=== PATIENT | female | born 1950 | race Caucasian/White ===

== ENCOUNTER → 2016-08-17 | Outpatient (CLI) | payer OTHER ==
[~2016-08-17] MED LIST: GADOBUTROL 10 ML VIAL IVP ONE
== END ==
LOC: FIMAGING 08:03
PROVIDERS: ATTEND Psychiatry & Neurology Neurology
DX: R41.3 Other amnesia (principal)
CPT/HCPCS: 70553; A9585

== ENCOUNTER → 2018-03-04 | Outpatient (CLI) | payer OTHER, MEDICARE ==
[2018-03-04 12:09] LABS: PLATELET COUNT 265 10^3/uL (150-400)
--- NOTE | 2018-03-05 12:01 | CPEKG ---
Test Reason : PREOP Blood Pressure : / mmHG Vent. Rate : 063 BPM Atrial Rate : 063 BPM P-R Int : 148 ms QRS Dur : 090 ms QT Int : 452 ms P-R-T Axes : 050 014 031 degrees QTc Int : 463 ms SINUS RHYTHM Heart rate has increased in comparison to prior Confirmed by Domingo Wilson ([id number]) on 03/05/2018 12:00:53 PM Referred By: Confirmed By:Domingo Wilson
== END ==
LOC: FPAT 11:10
PROVIDERS: ATTEND Orthopaedic Surgery
DX: Z01.810 Encounter for preprocedural cardiovascular examination (principal); Z01.818 Encounter for other preprocedural examination

== ENCOUNTER 2018-04-28 09:30 | Observation (INO) | payer OTHER, MEDICARE ==
--- NOTE | 2018-04-27 14:54 | GHP ---
DATE OF ADMISSION: 04/28/2018 ADMISSION DIAGNOSIS: Severe left knee osteoarthritis. HISTORY OF PRESENT ILLNESS: The patient is a 67-year-old female who will be admitted for a left tota l knee arthroplasty with Dr. Jolley on April 28, 2018, at [facility]. Because of her progressive pain, advanced arthritis, and recalcitrant response to conservative therapies, she kebede s elected to proceed with a left total knee arthroplasty. The patient has tried and failed pharmacol ogical management, injection therapies, and physical therapies. The patient has had progressive pain in the left knee for several years. Her activities of daily living have become progressively more a nd more difficult. She uses a cane for ambulation. She has difficulties going up and down stairs be cause of instability. 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 She also has a history of a right total hip arthroplasty and a fusion of her right ankle. She also has RSD in the right leg and ankle. REVIEW OF SYSTEMS: Please see HPI. PAST MEDICAL HISTORY: Pertinent for right total hip arthroplasty, right ankle arthrodesis, RSD in th e right lower extremity, and chronic pain. Also post-polio syndrome. No history of DVT, hepatitis, or metal allergies. CURRENT MEDICATIONS: This is a long list: Armodafinil 250 mg 1-1/2 tablets daily, bupropion HCL SR 100 mg 1 tablet daily, clonidine 0.1 mg daily, diazepam 5 mg 1 tablet q.6 hours, duloxetine 60 mg 1 b .i.d., Forteo 20 mcg per dose, hydromorphone extended release 16 mg q.24 hours., hydromorphone extend ed release 32 mg extended release 1 tablet daily, oxycodone 15 to 30 mg q.4 to 6 hours, OxyContin 20 to 80 mg b.i.d., trazodone 150 mg tablets 1-1/2 tablets by mouth daily as needed, and VESIcare 10 mg 1 tablet daily. ALLERGIES: Codeine and Keflex. Keflex causes a rash. FAMILY HISTORY: Pertinent for hypertension. SOCIAL HISTORY: The patient lives with a significant other. She is a nonsmoker. She uses medical m arijuana. Moderate alcohol intake. Her activities, include walking and swimming. PHYSICAL EXAMINATION: VITAL SIGNS: Height 5 feet 6 inches. Weight 130 pounds. BMI 20.7, blood pre ssure 70/50. HEENT: Head: Normocephalic, atraumatic. Eyes: PERRLA. Conjunctivae and sclerae are clear. Mouth : She has good oral hygiene without any loose teeth. LUNGS: Clear. HEART: Regular rate and rhythm without murmurs, gallops, or rubs. EXTREMITIES: Pertinent findings are limited to the patient's left knee. On exam, she has a slight f lexion contracture of the left knee. She has 110 degrees of flexion. There is mild varus deformity. Mild effusion. The knee is stable to exam. No varicosities. IMAGING: Recent x-rays of the patient's left knee shows end-stage epfp-hv-kgut arthritis, primarily of the medial tibial-femoral compartment with peripheral osteophyte formation and increased subchondr al sclerosis, primarily of the medial and lateral compartments. ASSESSMENT: 1. Severe left knee osteoarthritis. 2. Status post right total hip arthroplasty. 3. Status post right ankle arthrodesis. 4. Reflex sympathetic dystrophy of the right lower extremity. 5. Chronic pain. 6. Post-polio syndrome. PLAN: The plan will be for the patient to undergo a left total knee arthroplasty with Dr. Jolley at the [facility] on April 28, 2018. The surgery has been described to the patient, including the risks, benefits, and expectations. She understands the importance of postoperative phy sical therapy. All her questions have been answered and she consents to surgery here in the office t nae. Copy requested to: Valentin Liriano Dr. /[id number]/MODL
[2018-04-28] MEDS ORDERED: GABAPENTIN 300 MG CAP PO ONE (10:03)
[2018-04-28] MEDS ORDERED: FAMOTIDINE 20 MG TAB PO ONE (10:03)
[2018-04-28] MEDS ORDERED: ACETAMINOPHEN 325 MG TAB PO ONE (10:03)
[2018-04-28] MEDS ORDERED: ONDANSETRON 4 MG/2 ML VIAL IVP ONE (10:03)
[2018-04-28] MEDS ORDERED: DEXAMETHASONE 4 MG/ML VIAL IVP ONE (10:03)
[2018-04-28] MEDS ORDERED: LR 1,000 ML IV ONE (10:06)
[2018-04-28] MEDS: TRANEXAMIC ACID 1,000 MG in NS 100 ML IV ONE ×2 (10:17→12:56)
[2018-04-28] MEDS ORDERED: TRANEXAMIC ACID 3,000 MG/50 ML BAG IRR ONE (10:22)
[2018-04-28] MEDS: ceFAZolin 2 GM/DEXTROSE 100 ML IV ONE ×2 (10:32→13:06)
[2018-04-28] MEDS: ceFAZolin 1 GM/5 ML SYR ONE ×2 (11:02→13:38)
[2018-04-28] MEDS: VANCOMYCIN 1 GM VIAL ONE ×2 (11:03→12:53)
[2018-04-28] MEDS: POVIDONE-IODINE 20 ML in SODIUM CL IRRIG SOLUTION 500 ML IRR ONE ×2 (11:03→13:39)
[2018-04-28] MEDS: TRANEXAMIC ACID 3,000 MG in NS (SYRINGE) 50 ML IRR ONE ×2 (11:03→13:40)
[2018-04-28] MEDS: ROPIVACAINE 0.2% 80 MG, EPINEPHrine 0.2 MG, KETOROLAC TROMETHAMINE 30 MG in SYRINGE 0 ML IU ONE ×2 (11:03→13:39)
--- NOTE | 2018-04-28 11:13 | PDANEPAE ---
ANE Past Medical History - Cardiovascular History Hx Hypertension: No Hx Arrhythmias: No Hx Chest Pain: No Hx Coronary Artery / Peripheral Vascular Disease: No Hx CHF / Valvular Disease: No Hx Palpitations: No Cardiovascular History Comment: CHRONIC POOR CIRCULATION - Pulmonary History Hx COPD: No Hx Asthma/Reactive Airway Disease: No Hx Recent Upper Respiratory Infection: No Hx Oxygen in Use at Home: Yes O2 in Use at Home (L/minute): 4l at noc Hx Sleep Apnea: No Sleep Apnea Screening Result - Last Documented: Negative Pulmonary History Comment: decreased sats when sleeping d/t narcotics - Neurologic History Hx Cerebrovascular Accident: No Hx Seizures: No Hx Dementia: No Neurologic History Comment: TAKES NIVIGIL FOR DAYTIME SLEEPINESS AND FOCUS - Endocrine History Hx Diabetes: No Hypothyroid: No Hyperthyroid: No Obesity: no - Renal History Hx Renal Disorders: Yes Renal History Comment: KIDNEY STONES PASSED ON OWN IN JANUARY 2013 - Liver History Hx Hepatic Disorders: No - Neurological & Psychiatric Hx Hx Neurological and Psychiatric Disorders: Yes Neurological / Psychiatric History Comment: RSDS-'REGIONAL SYMPATHETIC DYSTOPHY SYNDROME'- CHRONIC PAIN. DEPRESSION - Cancer History Hx Cancer: Yes Cancer History Comment: ATYPICAL CELLS L BREAST- lumpectomy with chemo - Congenital Disorder History Hx Congenital Disorders: No - GI History GERD: no Hx Gastrointestinal Disorders: Yes Gastrointestinal History Comment: ESOPHAGUS LESION 15 Y AGO-ULCER DX - Other Health History Other Health History: chronic pain. POLIO AGE 19 MO- NUMERUS SURG R LEG, ANKLE AND FOOT. PRESENTLY R LEG IS 5/8 INCH SHORTER THAN L. MISSING TEETH X 4-5. LOOSE TOOTH BOTTOM L. bilateral hearing aides- doesn't wear. wears glasses - Chronic Pain History Chronic Pain: Yes (RT LEG) - Surgical History Prior Surgeries: 02/06/16 right hip reduction with dolbeare for dislocation. right hip closed reduction with melinda for dislocation. RIGHT FEMUR HARDWARE REMOVAL 12/23/12. RIGHT ABDIRAHMAN 06/25/13. NUMEROUS SURG R FOOT, LEG- HX POLIO AGE 19 MO. 12/26 HARDWARE REM R FEMUR,'08 R ARM FX REP X2, '08 HARDWARE PLACED FX HIP, '05 L BREAST. LUMPECTOMY- ATYPICAL. CELLS-TX TOMOXIFEN, EVISTA. '05-'10. '95 R BREAST BX-. BENIGN. '99 R LEG FX REP,'82. EPIPHYSIODESIS L FEMUR TO. CORRECT LEG LENGTH. INEQUALITY, R ANKLE. ARTHRODESIS '82. REMVL HARDWARE RT FEMUR 12/23/12 ANE Review of Systems Review of Systems: - Exercise capacity Exercise capacity: >=4 METS, limited by disability METS (RN): 3 METS ANE Patient History - Allergies Allergies/Adverse Reactions: adhesive tape Allergy (Uncoded 02/13/16 17:17) Itching bandaids Allergy (Uncoded 02/13/16 17:17) Itching - Home Medications Home Medications: DULoxetine [Cymbalta 60 MG (*)] 60 mg PO BID 02/09/14 [Last Taken 04/28/18] traZODone [traZODone 150MG (*)] 225 mg PO HS 02/07/16 [Last Taken 04/27/18] clonIDINE [Catapres (*)] 0.1 mg PO DAILY PRN 02/18/18 [Last Taken 04/14/18] Denosumab [Prolia] 60 mg SQ Q180D 04/09/18 [Last Taken 11/19/17] buPROPion SR [Wellbutrin 150mg SR (*)] 150 mg PO BID 04/09/18 [Last Taken ] celeCOXIB [Celebrex (*)] 200 mg PO DAILY 04/09/18 [Last Taken 04/27/18] oxyCODONE IR [Oxycodone Ir (*)] 15 mg PO QID 04/09/18 [Last Taken 04/28/18] - NPO status NPO Since - Liquids (Date): 04/28/18 NPO Since - Liquids (Time): 05:30 NPO Since - Solids (Date): 04/27/18 NPO Since - Solids (Time): 06:00 - Anes Hx Anes Hx: no prior problems - Smoking Hx Smoking Status: Never smoked Marijuana use: Yes - Alcohol Use Alcohol Use: Occasionally - Family Anes Hx Family Anes Hx: neg - N/A Family Hx Anesthesia Complications: none ANE Labs/Vital Signs - Vital Signs Blood Pressure: 108/50 Heart Rate: 71 Respiratory Rate: 16 O2 Sat (%): 93 Height: 167.64 cm Weight: 61.235 kg ANE Physical Exam - Airway Neck exam: decreased ROM Mallampati Score: Class 2 Mouth exam: dentures - Pulmonary Pulmonary: no respiratory distress, no rales or rhonchi, clear to auscultation, reduced air movement - Cardiovascular Cardiovascular: regular rate and rhythym, no murmur, rub, or gallop - ASA Status ASA Status: III ANE Anesthesia Plan Anesthesia Plan: MAC, spinal Regional Anesthesia: continuous NB, adductor canal FNB Total IV Anesthesia: No
[2018-04-28] MEDS ORDERED: PROPOFOL/EMULSION 500 MG/50 ML BOTTLE IV ONE (11:52)
[2018-04-28] MEDS ORDERED: fentaNYL 100 MCG/2 ML INJ ONE (11:52)
--- NOTE | 2018-04-28 12:05 | PDHPUP ---
History & Physical Update H&P update statement: This history and physical update is based on an assessment of the patient which was completed after admission or registration (within 24 hours), but prior to the surgery/procedure. H&P update: H&P reviewed & patient examined
[2018-04-28] MEDS ORDERED: MIDAZOLAM 2 MG/2 ML VIAL ONE (12:48)
[2018-04-28] MEDS ORDERED: BUPIVACAINE/DEXTROSE 7.5MG/ML 2 ML SPINAL AMP SP ONE (13:13)
[2018-04-28] MEDS ORDERED: NALOXONE HCL 0.4 MG/ML INJ IVP PRN (13:50)
[2018-04-28] MEDS ORDERED: ONDANSETRON 4 MG/2 ML VIAL IVP PRN ×2 (13:50→15:09)
[2018-04-28] MEDS ORDERED: LR 500 ML IV PRN (13:50)
[2018-04-28] MEDS ORDERED: MIDAZOLAM 2 MG/2 ML VIAL IVP ONE (13:50)
[2018-04-28] MEDS ORDERED: PROMETHAZINE HCL 25 MG/ML INJ IVP PRN ×2 (13:50→15:09)
[2018-04-28] MEDS ORDERED: PHENYLEPHRINE HCL 100 MCG/ML SYR IVP PRN (13:50)
[2018-04-28] MEDS ORDERED: ROPIVACAINE HCL 150 MG/30 ML INJ ONE (14:34)
[2018-04-28] MEDS ORDERED: PHENYLEPHRINE HCL 100 MCG/ML SYR ONE (14:42)
--- NOTE | 2018-04-28 14:47 | POSTOPPROG ---
Post Op Note Date of Operation: 04/28/18 Surgeon: Chet Jolley Knife Setter Grinder Machine: Lizbet Anesthesiologist: Agapito Anesthesia: IV Sedation, Spinal Post-op Diagnosis: Left knee severe degenerative arthritis with varus deformity Procedure: Left total knee arthroplasty Inf/Abcess present in the surg proc area at time of surgery?: No EBL: 50-100 (Adductor canal block in PACU with indwelling catheter.)
[2018-04-28] MEDS ORDERED: NS 500 ML IV PRN (15:09)
[2018-04-28] MEDS ORDERED: traMADol 50 MG TAB PO PRN (15:09)
[2018-04-28] MEDS ORDERED: LACTULOSE 20 GM/30 ML UDCUP PO PRN (15:09)
[2018-04-28] MEDS ORDERED: MAGNESIUM HYDROXIDE 30 ML UDCUP PO PRN (15:09)
[2018-04-28] MEDS ORDERED: ONDANSETRON DISINTEGRATING 4 MG TAB PO PRN (15:09)
[2018-04-28] MEDS ORDERED: PROMETHAZINE HCL 25 MG SUPPR PR PRN (15:09)
[2018-04-28] MEDS ORDERED: DIPHENOXYLATE/ATROPINE LOMOTIL 1 TAB PO PRN (15:09)
[2018-04-28] MEDS ORDERED: POLYETHYLENE GLYCOL 3350 17 GM PKT PO PRN (15:09)
[2018-04-28] MEDS ORDERED: BISACODYL 10 MG SUPP PR PRN (15:09)
[2018-04-28] MEDS ORDERED: diphenhydrAMINE 25 MG CAP PO PRN (15:09)
[2018-04-28] MEDS ORDERED: LR 1,000 ML IV SCH (15:30)
[2018-04-28] MEDS ORDERED: traMADol 50 MG TAB ONE (15:44)
[2018-04-28] MEDS ORDERED: oxyCODONE IR 5 MG TAB ONE (15:44)
--- NOTE | 2018-04-28 15:48 | GOP ---
DATE OF OPERATION: 04/28/2018 SURGEON: Chet Jolley MD PROFESSOR OF MATHEMATICS: Valentin Frederick, CAROL Haley [facility] ANESTHESIA: Combination of Marcaine spinal and IV sedation. ANESTHESIOLOGIST: Kinsey Altman DO. PREOPERATIVE DIAGNOSIS: Left knee severe degenerative arthritis with varus deformity. POSTOPERATIVE DIAGNOSIS: Left knee severe degenerative arthritis with varus deformity. PROCEDURE PERFORMED: 04/28/2018, left total knee arthroplasty, cemented, Soto and Nephew Journey II , posterior stabilized. FINDINGS: ESTIMATED BLOOD LOSS: Following deflation of the tourniquet was about 100 cc. The sponge and needle count were correct on 2 occasions. The patient was awakened from anesthesia, transferred to her gurney, and taken to PACU in satisfactor y condition. There were no recognized intraoperative complications. In the PACU, for additional pain control, Dr. Altman performed an adductor canal block with an i ndwelling catheter. Josias Frederick and Main Merino acted as surgical assistants. Their assistance was a medical necessi ty for safe completion of the procedure. DESCRIPTION OF PROCEDURE: The patient was given 2 g of IV Ancef preoperatively within 60 minutes of surgery. She also received IV tranexamic acid at a dose of 1000 mg. She was placed on the operating room table and given spinal anesthesia with Marcaine by Dr. Altman. She was then placed supine and given IV sedation. A Clinton catheter was not used. She wore a BLU stocking and SCD on the nonop erative leg. A small bolster was placed under the left hip to prevent excessive external rotation of her leg. Her left lower extremity was prepped with ChloraPrep from the upper thigh tourniquet to th e tips of the toes. It was draped free using sterile sheets, stockinette, and Ioban plastic adhesive drape. The lower leg was wrapped with compressive Coban. Her leg was exsanguinated with elevation and a 6-inch compressive wrap, and the pneumatic tourniquet was inflated to 250 mmHg. The World Health Organization time-out was performed to verify the correct patient identity and the c orrect surgical side and site. The [place] time-out was also performed. The Minetta Brooko leg holding device was sterilely attached to the operating room table and used throughout the procedure to help position the knee. A straight midline incision was made centered on the patell a. She had long medial and lateral parapatellar incisions. I left an adequate skin bridge between m y incision and the pre-existing incisions, which were many years old. Subcutaneous tissues were keo ply divided, and hemostasis was obtained using electrocautery. A medial subcutaneous flap was develo ped, and the capsule and synovium were opened in a medial parapatellar fashion. Very severe degenera tive changes were present. She had a significant erosion on the medial trochlear groove in the media l facet of her patella. The medial capsule and periosteum were elevated off the rim of the medial ti bial plateau all the way around to the posteromedial corner. Her medial collateral ligament was rele ased enough to balance the medial side of the knee. In order to improve exposure, the patella was prepared first. The original thickness of the patella was measured. Peripheral osteophytes were removed. I cut a flat surface on the back of the patella. It was sized for a 38 mm round resurfacing component. I removed enough bone from the patella such that the remaining bone plus the thickness of the patellar component recreated the original thickness of the patella. The composite thickness was 23 mm. The intramedullary alignment guide system was used to set up the distal femoral cut. The distal femu r was cut in 6 degrees of valgus. The sizing jig was used to determine proper femoral sizing. She w as a true size 6. The 5-in-1 cutting block was applied, and anterior and posterior condylar cuts and chamfer cuts were made. The final jig was used to remove the central portion of the distal femur to accommodate the posterior stabilized femoral component. I was careful to determine proper rotation by referencing off Whitesides line and other bony landmarks. Each cut was checked for accuracy. Domenica s femur was sized for a size 6 posterior stabilized component. Next, the tibia was prepared. The proximal tibial cut was made using the extramedullary alignment gu evelyn system. The cut was made in a few degrees of posterior slope. I was careful to achieve proper v arus valgus alignment and proper rotation. The posterior compartment was cleared of meniscal remnant s. Osteophytes were removed from the back of the femoral condyles. The flexion and extension gaps w ere both tight and I went ahead and took 2 additional mm off the proximal tibia. At this point, the flexion and extension gaps were equal and rectangular. The tibia was sized for a size 6 component. With the trial components in place, I selected a 9 mm polyethylene posterior stabilized tibial insert . The knee came to full extension and flexed to 130 degrees. Her collateral ligaments were stable a nd balanced in 90 degrees of flexion and full extension. The trial button was applied and tracking w as checked. Tracking was excellent without any digital pressure. The patient had very significant o steoporosis in both the proximal tibia and distal femur. 40 cc of a joint anesthetic cocktail were injected into the capsule, the quadriceps muscle and tendon areas, and the subcutaneous tissues along the skin edges. The surfaces were prepared for cementing. They were carefully cleaned with the pulsating lavage irri gation and thoroughly dried. The CarboJet device was used to blow dry the cancellous surfaces. A do uble batch of high viscosity methylmethacrylate cement with 2 g of powdered vancomycin was mixed. Wh ile it was still in a doughy state all 3 components were cemented in place. Excess cement was remove d before it hardened. The 9 mm trial tibial insert was re-tried and was the proper thickness. The actual component was ins erted and locked into place. The knee was thoroughly irrigated 1 final time with a dilute Betadine s olution. The tourniquet was deflated and the total tourniquet time was 1 hour and 4 minutes. 50 cc of Tranexa katelin acid solution was irrigated into the wound. The knee was packed with a lap and wrapped with a 6- inch Leonardo wrap and was left for 2 or 3 minutes. The vastus medialis portion of the extensor mechanism was repaired with several interrupted figure-of -eight #2 FiberWire sutures. The capsule and synovium were closed first with multiple interrupted fi [id number] 0 PDS sutures, followed by a running #2 barbed Ethicon Stratafix PDO. Subcutaneous tis sues were closed with a running 0 barbed Ethicon Stratafix Monoderm suture. The skin was closed with a running 3-0 barbed Ethicon Stratafix Monoderm subcuticular suture. The skin was sealed with half- inch Steri-Strips. The wound was covered with a large Mepilex waterproof dressing and a 6-inch compr essive wrap. A long-leg BLU stocking and SCD were applied, followed by the cooling device. The kian ent wore a stocking and SCD on the opposite leg during the procedure. The sacral Mepilex dressing wa s applied. I used a size 6 cemented Soto and Nephew Oxinium posterior stabilized femoral component, a size 6 ce mented tibial base plate, a 9 mm posterior stabilized tibial insert and a 38 mm cemented round all-po lyethylene resurfacing patellar component. Copy requested to: Chet Buitrago NP [place], [place] /[id number]/MODL
[2018-04-28] MEDS: oxyCODONE IR 15 MG TAB PO SCH ×2 (15:51→21:24)
--- NOTE | 2018-04-28 15:51 | POSTANESTH ---
Post Anesthetic Evaluation Cardiovascular Status: Normal, Stable Respiratory Status: Normal, Stable Level of Consciousness/Mental Status: Can Participate in Eval Pain Control: Adequate, Prn Tx Ordered Nausea/Vomiting Control: Adequate, Prn Tx Ordered Complications Possibly Related to Anesthesia: None Noted
[2018-04-28] MEDS: ACETAMINOPHEN 325 MG TAB PO SCH (18:03)
[2018-04-28] MEDS: KETOROLAC 15 MG/1 ML SDV IVP SCH (18:04)
[2018-04-28] MEDS: CYCLOBENZAPRINE 10 MG TAB PO PRN (19:19)
[2018-04-28] MEDS: oxyCODONE IR 5 MG TAB PO PRN (20:18)
[2018-04-28] MEDS: ASPIRIN 325 MG TAB PO SCH (21:22)
[2018-04-28] MEDS: buPROPion SR 150 MG TAB PO SCH (21:22)
[2018-04-28] MEDS: ceFAZolin 2 GM/DEXTROSE 100 ML IV SCH (21:23)
[2018-04-28] MEDS: DULoxetine 60 MG CAP PO SCH (21:23)
[2018-04-28] MEDS: FAMOTIDINE 20 MG TAB PO SCH (21:23)
[2018-04-28] MEDS: SENNOSIDES/DOCUSATE SODIUM TAB PO SCH (21:25)
[2018-04-29] MEDS: oxyCODONE IR 5 MG TAB PO PRN ×3 (03:42→09:45)
[2018-04-29] MEDS: CYCLOBENZAPRINE 10 MG TAB PO PRN ×2 (03:42→13:11)
[2018-04-29] MEDS: ceFAZolin 2 GM/DEXTROSE 100 ML IV SCH (05:38)
[2018-04-29] MEDS: ACETAMINOPHEN 325 MG TAB PO SCH ×3 (05:38→12:19)
[2018-04-29] MEDS: KETOROLAC 15 MG/1 ML SDV IVP SCH ×3 (05:39→12:20)
[2018-04-29] MEDS: oxyCODONE IR 15 MG TAB PO SCH ×2 (05:39→12:19)
[2018-04-29] MEDS ORDERED: ROPIVACAINE HCL 150 MG/30 ML INJ ONE (08:17)
[2018-04-29] MEDS ORDERED: LIPID EMULSION 20% 100 ML IV PRN (08:28)
[2018-04-29] MEDS ORDERED: FERROUS SULFATE 140 MG TAB.ER PO SCH (09:00)
--- NOTE | 2018-04-29 09:09 | PDPAINCON ---
Pain Management Consultation Patient referred by : Samreen - Subjective Pain at rest (/10): 4 Pain with activity (/10): 4 Pain is: under control Activity: out of bed with assistance - Objective Technique: continuous peripheral nerve block Site: femoral (AC catheter) Catheter site: clean, dry, intact Sensory and motor exam: consistent with block Vital signs: stable - Assessment/Plan Assessment/Plan: other (AC catheter tested and injected with Ropivacaine 0.5%, 20 ml, with patient monitored as per protocol. Catheter removed easily and tip intact.)
--- NOTE | 2018-04-29 09:36 | SOAPPROG ---
SOAP Progress Note Assessment/Plan: Assessment: Afebrile. Mild pain. Up and walking and has done stairs. H/H is good. Dsg is dry. Films look good. Plan: DC today. 04/29/18 09:35 Objective: Vital Signs Temp Pulse Resp BP Pulse Ox 36.7 C 72 19 105/60 95 04/29/18 07:18 04/29/18 09:29 04/29/18 09:29 04/29/18 09:29 04/29/18 09:29 Laboratory Results 04/29/18 04:37 04/28/18 04/29/18 04/30/18 05:59 05:59 05:59 Intake Total 3660 Output Total 1280 Balance 2380 ICD10 Worksheet Patient Problems: Problems Problem Status Onset Osteoarthritis of left knee Acute Osteoarthritis of hip Active Accidental drug overdose Acute Anterior dislocation of right hip Acute COPD (chronic obstructive pulmonary disease) Acute
[2018-04-29] MEDS: buPROPion SR 150 MG TAB PO SCH (09:40)
[2018-04-29] MEDS: DULoxetine 60 MG CAP PO SCH (09:40)
[2018-04-29] MEDS: FAMOTIDINE 20 MG TAB PO SCH (09:40)
[2018-04-29] MEDS: SENNOSIDES/DOCUSATE SODIUM TAB PO SCH (09:40)
[2018-04-29] MEDS: ASPIRIN 325 MG TAB PO SCH (09:40)
--- NOTE | 2018-04-29 10:09 | GDS ---
ADMISSION DIAGNOSIS: Left knee severe degenerative arthritis. DISCHARGE DIAGNOSIS: Left knee severe degenerative arthritis. OPERATION PERFORMED: 04/28/2018, left total knee arthroplasty. POSTOPERATIVE COMPLICATIONS: None. CONDITION ON DISCHARGE: Improved. HOSPITAL COURSE: The patient was admitted to the hospital on the morning of surgery. The same day u nder a combination of Marcaine spinal, IV sedation, and adductor canal block, she underwent a left to nohemi knee arthroplasty. Postoperatively, she was treated with multimodal DVT prophylaxis, including aspirin. On the first po stoperative day, her hemoglobin and hematocrit were 11.7 and 36.8. She was seen by Physical Therapy and made good progress with ambulation and stairs. By the time of discharge, she was afebrile, her w ound was dry, and she was independent walking with a walker. DISPOSITION: The patient is discharged to her home. She will go to outpatient physical therapy next week. Continue aspirin 325 mg p.o. daily for 21 days. Continue Celebrex daily for 21 days. She kebede s prescriptions for oxycodone and tramadol for pain control. She also has additional narcotic pain m edicine for treatment of her chronic pain syndrome. I will see her back in the office on 05/11/2018. If any problems, she is to call me at the office. Copy requested to: ERIK Ventura /[id number]/DAVEL
[2018-04-29 11:25] VITALS: BP 112/55
--- NOTE | 2018-04-29 12:48 | ASMTLACE ---
GISELE Length of stay for Answers: 1 day current admission Acuity / Level of Answers: No Care: Did the patient have an inpatient admission? Comorbidities - select Answers: Opioid dependence all that apply / Chronic pain # of Emergency department Answers: 0 visits in the last 6 months Social determinants Answers: Mental health diagnosis (anxiety, depression, pers onality disorders, etc.) Score: 8 Date Signed: 04/29/2018 12:47 PM Electronically Signed By:Porsha Smith RN
--- NOTE | 2018-04-29 12:51 | ASMTCMCOM ---
CM Note CM Note Notes: Met with patient re: d/c plan of care. Patient is agreeable to HC and has used [facility] in the past - requesting again. Referral/orders sent to [facility] , they are able to accept patient and open tomorrow. CM available for any further needs. Plan: [facility] PT/OT Date Signed: 04/29/2018 12:50 PM Electronically Signed By:Porsha Smith RN
--- NOTE | 2018-04-29 15:31 | ASDISCHSUM ---
Discharge Information Plan Status:Home with Home Health Medically Cleared to Leave: Discharge Date:04/29/2018 01:37 PM CM D/C Disposition:Home Health Service ADT D/C Disposition:Home, Routine, Self-Care Projected Discharge Date:04/29/2018 11:00 AM Transportation at D/C:Friend Discharge Delay Reason: Follow-Up Date:04/29/2018 11:00 AM Discharge Slot: Final Diagnosis: Placement Information Referral Type:*Home Health Care Services Referral ID:[id number] Provider Name:[facility] Address 1:[address] Phone Number: Address 2: Fax Number: City:[place] Selection Factors: State:[place] Patient Contact Information Contact Name:KARIME Relationship:Life Partner Address:[address] City:[place] Alternate Phone: State/Zip Code:[place] [address] Email: Financial Information Financial Class:Medicare Primary Plan Desc:MEDICARE OUTPATIENT Primary Plan Number:[id number] Secondary Plan Desc:[employer]/MDR SUPPLEMENT Secondary Plan Number:[id number] Assessment Information LACE LACE Length of stay for Answers: 1 day current admission Acuity / Level of Answers: No Care: Did the patient have an inpatient admission? Comorbidities - select Answers: Opioid dependence all that apply / Chronic pain # of Emergency department Answers: 0 visits in the last 6 months Social determinants Answers: Mental health diagnosis (anxiety, depression, pers onality disorders, etc.) Score: 8 Date Signed: 04/29/2018 12:47 PM Electronically Signed By:Porsha Smith RN [facility] CM Progress Note CM Note CM Note Notes: Met with patient re: d/c plan of care. Patient is agreeable to HC and has used [facility] in the past - requesting again. Referral/orders sent to [facility] , they are able to accept patient and open tomorrow. CM available for any further needs. Plan: [facility] PT/OT Date Signed: 04/29/2018 12:50 PM Electronically Signed By:Porsha Smith RN Intervention Information
[2018-05-05] MEDS ORDERED: Denosumab [Prolia] 60 MG SQ SCH (15:15)
== END 2018-04-29 13:37 | disposition home health service (06) ==
LOC: F3N 09:55
PROVIDERS: ADMIT Orthopaedic Surgery; ATTEND Orthopaedic Surgery
PROC: 0SRD0J9 Replacement of Left Knee Joint with Synthetic Substitute, Cemented, Open Approach (ICD-10-PCS; principal; 2018-04-28 11:15)
DX: M17.12 Unilateral primary osteoarthritis, left knee (principal); M21.162 Varus deformity, not elsewhere classified, left knee; G90.521 Complex regional pain syndrome I of right lower limb; G89.29 Other chronic pain; G14 Postpolio syndrome; F32.9 Major depressive disorder, single episode, unspecified; Z87.442 Personal history of urinary calculi; Z96.641 Presence of right artificial hip joint; Z23 Encounter for immunization
CPT/HCPCS: 27447; 73560; 77073; 88311; 90686; 97110; 97116; 97161; 97165; 97535; C1713; C1776; G0008; G8978; G8979; G8980; G8987; G8988; J0171; J0690; J1100; J1885; J2250; J2370; J2405; J2704; J2795; J3010; J3370

== ENCOUNTER 2018-05-30 11:39 | Inpatient (IN) | payer OTHER, MEDICARE ==
--- NOTE | 2018-05-30 12:26 | EDPHY ---
General - Diagnostics Imaging: Discussed imaging studies w/ seat coverer Radiologist, I viewed and interpreted images myself - History History Review: I reviewed the patient's medical records, I obtained additional history from the patient's family Smoking Status: Former smoker Time Seen by Provider: 05/30/18 12:17 Narrative: CHIEF COMPLAINT: Fall HISTORY OF PRESENT ILLNESS: Patient presents by EMS and is seen shortly after arrival with complaints fall. She was walking up a set of stairs when she slipped and fell 4 stairs. She reports striking her head. She denies loss of conscious. She complains of a mild headache, laceration that was bleeding, and left mid thigh pain. She was unable to bear weight. She has no chest pain no back pain or abdominal pain. No nausea vomiting no visual disturbance. She has severe pain left thigh. She states she was on the way to see her psychotherapist when this happened. No other associated complaints or modifying factors REVIEW OF SYSTEMS: 10 systems were reviewed and negative with the exception of the elements mentioned in the history of present illness. PCP: [facility] SPECIALISTS: Dr. Jolley PAST MEDICAL HISTORY: Complex history reviewed. Recent left TKA in April ANTICOAGULATED: None PAST SURGICAL HISTORY: Multiple surgeries reviewed. Left TKA in early April this year SOCIAL HISTORY: Lives independently. CPAP at night. FAMILY HISTORY: Noncontributory EXAMINATION: Triage vitals reviewed. However she is 100% on room air with good plethymosgraphy during my examination. General Appearance: Alert, no distress Head: normocephalic, occipital scalp laceration with occipital hematoma. No Archibald sign. No raccoon eyes. no depression or deformity. Eyes: Pupils equal and round, no conjunctival pallor or injection ENT, Mouth: Mucous membranes moist Neck: C-collar placed prior to arrival. Normal inspection, midline trachea. Respiratory: Lungs are clear to auscultation Cardiovascular: Regular rate and rhythm. No murmur good signs of perfusion distally. Gastrointestinal: Abdomen is soft and nontender Back: non-tender, no bony abnormalities Neurological: GCS 15. A&O, nonfocal, decrease sensory in the right lower extremity that reportedly baseline. Strength is symmetric in the upper extremities. Strength is 5/5 in the left ankle and knee. Unable to fully range the left hip. Skin: Warm and dry, no rash. Superficial laceration to the dorsum of the left wrist. Scalp laceration in the occiput, 3 cm without injury to the galea. No foreign body pulsatile bleeding. Extremities: Tenderness to the left proximal femur and hip. Unable to range the left hip due to pain. All compartments are soft and lower extremity. She was a right ankle splint due to fusion of the right ankle and knee. Psychiatric: Mood and affect normal DIFFERENTIAL DIAGNOSES: Including but not limited to hip fracture, femur fracture, sprain, strain, intracranial hemorrhage, basilar skull fracture, scalp laceration, pneumothorax , hemothorax, rib fracture MDM: 12:15 p.m. Mechanical fall down 4 stairs just prior to arrival. She does have an occipital hematoma with likely scalp laceration. Difficult to tell with dried blood. She is in a C-collar from EMS. I have ordered CT scans of the head cervical spine. I have ordered chest x-ray, left femur and left knee x-rays. She is in no acute distress. She has no complaints of chest, back or abdominal pain aside from baseline pain. She is neuro intact. Laceration will be irrigated re-evaluated. 12:25 p.m. Wound has been irrigated re-evaluated. There is a repairable laceration on the occiput measuring 3 cm. Area has been anesthetize and closed with adilene. Wound care discussed. CT scans of the head neck pending. Plain films pending. 1:00 p.m. Notified by radiologist. No acute findings on CT scans of the head or cervical spine. Dr. Harrison has evaluated and cleared the EMS C-collar following these images. 1:30 p.m. X-ray of the plain film does reveal a left intertrochanteric fracture as read by me. I discussed case with the hospitalist and will page her established orthopedist. She will be admitted to Dr. Oumou Pickering. Admitted stable condition. 1:40 p.m. Case discussed with DAVID Woodard with [facility] sent for Orthopedics. He will contact his surgeon and return my call. 2:00 p.m. Case discussed again with DAVID Woodard. He reports that his surgeon is requesting that Dr. Curran take care the patient. I discussed this with the patient and she has agreed. I have also discussed the case with Dr. Curran and he will come evaluate the patient. He states that he is happy to take care of her. There is also a possible vertical fraction patella per radiologist that I will discuss with the orthopedist. 2:30 p.m. I discussed the knee x-ray with Dr. Curran and he will evaluate clinically. PROCEDURE: Laceration repair Consent: Verbal Location: Occipital scalp Length of repair: 3 cm Complexity: Complex Layer involvement: Single Anesthesia: Local. 0.5% Marcaine with epinephrine, 5 mL Irrigation: Extensive Debridement: None Procedure description: Following good anesthesia, the wound was copiously irrigated. Wound bed was explored with a sterile glove, and there is no foreign body noted. No injury to the galea. Wound borders were approximated well with good hemostasis. Tolerated well without complication. Suture/Staple material: 3 adilene Wound care: Routine as discussed Suture/Staple removal:10 Days SUPERVISION: Patient was independently examined, but I discussed the case with my primary supervising physician Dr. Harrison. CONSULTATION: Orthopedics, Dr. Curran ([facility]) Medical Decision Making: The cervical spine was cleared by me after the negative CT scan. She has no midline tenderness and range of motion without pain. (Shanna Harrison) - Diagnostics Imaging Results: Imaging Impressions Cervical Spine CT 05/30/18 12:26 Impression: Negative noncontrast CT of the head with no intracranial posttraumatic sequela identified. 2. CT Cervical Spine Without Contrast History: Trauma. Fall. Technique: Multi-slice ultrathin single breath-hold helical CT through the neck from the skull base through the thoracic inlet without contrast. Soft tissue and bone window evaluation is performed. Sagittal and coronal reconstructions are obtained. Dose reduction techniques were utilized. Findings: Alignment is anatomic, except for likely degenerative spondylolisthesis at C3-C4-C5 and degenerative retrolisthesis at C5-C6. There is a mild mid cervical levoscoliosis. There is moderate disk space narrowing with vacuum phenomenon and marginal osteophyte formation between C5 and C7. There is osteoarthritic change between the anterior ring of C1 and the odontoid process. No fracture or dislocation is identified. Disk spaces are well maintained. Facets are normally aligned, but associated with multilevel osteoarthritic change, worse on the left. There is chronic erosive change on either side of the mildly widened right C4-C5 facet joint. The skull base - C1 and C1-C2 relationships are normal. There is a small degenerative vacuum phenomenon associated with the right skull base-C1 joint. The odontoid process is intact. There is no evidence of a prevertebral or epidural hematoma. The cervical thoracic junction is normally aligned. Incidentally noted is severe osteoarthritic change of both temporomandibular joints. Impression: Nothing acute identified. If there is concern for instability, then consider lateral flexion-extension views, cervical fluoroscopy and/or cervical MRI. Results discussed with Paulie Taylor at 1:06 PM. General information for patients regarding this examination can be found at [email or web address]. If you have questions or comments about this report, please contact me at (hospital) or [phone] (cell). Chest X-Ray 05/30/18 12:26 Impression: Possibly some left lower lobe consolidation. Otherwise nothing acute identified. 2. AP Pelvis History: Left hip pain post fall Findings: There is an acute intertrochanteric hip fracture with angulation between the femoral neck and the femoral shaft of approximately 90 degrees. The pelvic ring is intact. The patient has a right total hip replacement that appears normally located. The SI joints and pubic symphysis appear normally aligned. Impression: Acute left intertrochanteric hip fracture. 3. Left Femur, 4 views History: Pain post fall Findings: The acute left intertrochanteric fracture is confirmed. The distal femur is otherwise intact and unremarkable. A total left knee replacement is present. Impression: Left intertrochanteric hip fracture. Otherwise normal femur. 4. Left Knee, 2 views History: Pain post fall Findings: On the lateral view it is difficult to exclude a vertical fracture coursing through the upper pole of the patella. There is marked prepatellar and anterior soft tissue swelling. I suspect there is a knee joint effusion. A tiny radiopaque triangular density is seen on the lateral view approximately 2.3 cm above the upper pole of the patella. This could possibly represent something on the skin or a small radiopaque foreign body. A left total knee replacement is present and in expected position. No other possible acute fracture or malalignment is identified. There is no soft tissue gas. Impression: 1. Marked anterior soft tissue swelling with a possible nondisplaced patellar fracture.. 2. Possible small radiopaque foreign body. Femur X-Ray 05/30/18 12:26 Impression: Possibly some left lower lobe consolidation. Otherwise nothing acute identified. 2. AP Pelvis History: Left hip pain post fall Findings: There is an acute intertrochanteric hip fracture with angulation between the femoral neck and the femoral shaft of approximately 90 degrees. The pelvic ring is intact. The patient has a right total hip replacement that appears normally located. The SI joints and pubic symphysis appear normally aligned. Impression: Acute left intertrochanteric hip fracture. 3. Left Femur, 4 views History: Pain post fall Findings: The acute left intertrochanteric fracture is confirmed. The distal femur is otherwise intact and unremarkable. A total left knee replacement is present. Impression: Left intertrochanteric hip fracture. Otherwise normal femur. 4. Left Knee, 2 views History: Pain post fall Findings: On the lateral view it is difficult to exclude a vertical fracture coursing through the upper pole of the patella. There is marked prepatellar and anterior soft tissue swelling. I suspect there is a knee joint effusion. A tiny radiopaque triangular density is seen on the lateral view approximately 2.3 cm above the upper pole of the patella. This could possibly represent something on the skin or a small radiopaque foreign body. A left total knee replacement is present and in expected position. No other possible acute fracture or malalignment is identified. There is no soft tissue gas. Impression: 1. Marked anterior soft tissue swelling with a possible nondisplaced patellar fracture.. 2. Possible small radiopaque foreign body. Head CT 05/30/18 12:26 Impression: Negative noncontrast CT of the head with no intracranial posttraumatic sequela identified. 2. CT Cervical Spine Without Contrast History: Trauma. Fall. Technique: Multi-slice ultrathin single breath-hold helical CT through the neck from the skull base through the thoracic inlet without contrast. Soft tissue and bone window evaluation is performed. Sagittal and coronal reconstructions are obtained. Dose reduction techniques were utilized. Findings: Alignment is anatomic, except for likely degenerative spondylolisthesis at C3-C4-C5 and degenerative retrolisthesis at C5-C6. There is a mild mid cervical levoscoliosis. There is moderate disk space narrowing with vacuum phenomenon and marginal osteophyte formation between C5 and C7. There is osteoarthritic change between the anterior ring of C1 and the odontoid process. No fracture or dislocation is identified. Disk spaces are well maintained. Facets are normally aligned, but associated with multilevel osteoarthritic change, worse on the left. There is chronic erosive change on either side of the mildly widened right C4-C5 facet joint. The skull base - C1 and C1-C2 relationships are normal. There is a small degenerative vacuum phenomenon associated with the right skull base-C1 joint. The odontoid process is intact. There is no evidence of a prevertebral or epidural hematoma. The cervical thoracic junction is normally aligned. Incidentally noted is severe osteoarthritic change of both temporomandibular joints. Impression: Nothing acute identified. If there is concern for instability, then consider lateral flexion-extension views, cervical fluoroscopy and/or cervical MRI. Results discussed with Paulie Taylor at 1:06 PM. General information for patients regarding this examination can be found at [email or web address]. If you have questions or comments about this report, please contact me at (hospital) or [phone] (cell). Knee X-Ray 05/30/18 12:26 Impression: Possibly some left lower lobe consolidation. Otherwise nothing acute identified. 2. AP Pelvis History: Left hip pain post fall Findings: There is an acute intertrochanteric hip fracture with angulation between the femoral neck and the femoral shaft of approximately 90 degrees. The pelvic ring is intact. The patient has a right total hip replacement that appears normally located. The SI joints and pubic symphysis appear normally aligned. Impression: Acute left intertrochanteric hip fracture. 3. Left Femur, 4 views History: Pain post fall Findings: The acute left intertrochanteric fracture is confirmed. The distal femur is otherwise intact and unremarkable. A total left knee replacement is present. Impression: Left intertrochanteric hip fracture. Otherwise normal femur. 4. Left Knee, 2 views History: Pain post fall Findings: On the lateral view it is difficult to exclude a vertical fracture coursing through the upper pole of the patella. There is marked prepatellar and anterior soft tissue swelling. I suspect there is a knee joint effusion. A tiny radiopaque triangular density is seen on the lateral view approximately 2.3 cm above the upper pole of the patella. This could possibly represent something on the skin or a small radiopaque foreign body. A left total knee replacement is present and in expected position. No other possible acute fracture or malalignment is identified. There is no soft tissue gas. Impression: 1. Marked anterior soft tissue swelling with a possible nondisplaced patellar fracture.. 2. Possible small radiopaque foreign body. Pelvis X-Ray 05/30/18 12:26 Impression: Possibly some left lower lobe consolidation. Otherwise nothing acute identified. 2. AP Pelvis History: Left hip pain post fall Findings: There is an acute intertrochanteric hip fracture with angulation between the femoral neck and the femoral shaft of approximately 90 degrees. The pelvic ring is intact. The patient has a right total hip replacement that appears normally located. The SI joints and pubic symphysis appear normally aligned. Impression: Acute left intertrochanteric hip fracture. 3. Left Femur, 4 views History: Pain post fall Findings: The acute left intertrochanteric fracture is confirmed. The distal femur is otherwise intact and unremarkable. A total left knee replacement is present. Impression: Left intertrochanteric hip fracture. Otherwise normal femur. 4. Left Knee, 2 views History: Pain post fall Findings: On the lateral view it is difficult to exclude a vertical fracture coursing through the upper pole of the patella. There is marked prepatellar and anterior soft tissue swelling. I suspect there is a knee joint effusion. A tiny radiopaque triangular density is seen on the lateral view approximately 2.3 cm above the upper pole of the patella. This could possibly represent something on the skin or a small radiopaque foreign body. A left total knee replacement is present and in expected position. No other possible acute fracture or malalignment is identified. There is no soft tissue gas. Impression: 1. Marked anterior soft tissue swelling with a possible nondisplaced patellar fracture.. 2. Possible small radiopaque foreign body. - Objective Vital Signs: Initial Vital Signs Temperature (C) 97.7 F 05/30/18 11:51 Heart Rate 88 05/30/18 11:51 Respiratory Rate 20 05/30/18 11:51 Blood Pressure 158/80 H 05/30/18 11:51 O2 Sat (%) 81 L 05/30/18 11:51 O2 Delivery Mode Room Air Allergies/Adverse Reactions: adhesive tape Allergy (Uncoded 05/30/18 11:55) Itching bandaids Allergy (Uncoded 05/30/18 11:55) Itching Home Medications: Medication Instructions Recorded DULoxetine [Cymbalta 60 MG (*)] 60 mg PO BID 02/09/14 traZODone [traZODone 150MG (*)] 225 mg PO HS 02/07/16 clonIDINE [Catapres (*)] 0.1 mg PO DAILY PRN 02/18/18 Denosumab [Prolia] 60 mg SQ Q180D 04/09/18 buPROPion SR [Wellbutrin 150mg SR 150 mg PO BID 04/09/18 (*)] oxyCODONE IR [Oxycodone Ir (*)] 15 mg PO QID 04/09/18 Aspirin [Aspirin 325 mg (*)] 325 mg PO DAILY tab 04/29/18 Ferrous Sulfate [Slow Fe 140 MG 140 mg PO DAILY tab.er 04/29/18 (*)] celeCOXIB [Celebrex (*)] 200 mg PO DAILY cap 04/29/18 traMADol [Ultram 50 mg (*)] 50 mg PO Q6HRS PRN tab 04/29/18 Acetaminophen [Tylenol 325mg (*)] 650 mg PO DAILY 05/30/18 Medications Given: Discontinued Medications Fentanyl (Sublimaze) 50 mcg IVP EDNOW ONE Stop: 05/30/18 13:17 Last Admin: 05/30/18 13:19 Dose: 50 mcg Departure - Departure Disposition: [facility] Inpatient Acute Clinical Impression: Fracture, intertrochanteric, left femur Qualifiers: Encounter type: initial encounter Fracture type: closed Fracture alignment: displaced Qualified Code(s): S72.142A - Displaced intertrochanteric fracture of left femur, initial encounter for closed fracture Occipital scalp laceration Qualifiers: Encounter type: initial encounter Qualified Code(s): S01.01XA - Laceration without foreign body of scalp, initial encounter Condition: Good
[2018-05-30] MEDS ORDERED: fentaNYL 100 MCG/2 ML INJ IVP ONE (13:16)
[2018-05-30] MEDS ORDERED: oxyCODONE IR 5 MG TAB PO PRN ×2 (14:22→15:49)
[2018-05-30] MEDS ORDERED: LORazepam 2 MG/ML INJ IVP PRN (14:22)
[2018-05-30] MEDS ORDERED: ONDANSETRON 4 MG/2 ML VIAL IVP PRN ×2 (14:22→15:49)
[2018-05-30] MEDS ORDERED: ONDANSETRON DISINTEGRATING 4 MG TAB PO PRN (14:22)
--- NOTE | 2018-05-30 14:35 | PDGENHP ---
History and Physical - Chief Complaint fall, hip fracture - History of Present Illness 67yo F with chronic pain with opioid dependency, chronic regional pain syndrome , depression presents after fall. Was walking up stairs to see her psychotherapist when her leg didn't clear the stair and she fell down 4-5 stairs landing on her left hip and striking her head. She had a small 3cm laceration on her occiput that was closed with adilene in the ED. X-rays revealed an acute closed left intertrochanteric hip fracture. She is being admitted for pain control and surgical management of this with Dr Curran. In my discussion with patient she is in quite a bit of pain. She reports taking 60mg of oxycodone daily but then also states she was just started on long-acting morphine by her chronic pain specialist 2 days ago. She is unsure of this dose. She denies etoh, benzos, or illicit substances. Of note, she was recently here 04/2018 for L TKA. History Information - Allergies/Home Medication List Allergies/Adverse Reactions: adhesive tape Allergy (Uncoded 05/30/18 11:55) Itching bandaids Allergy (Uncoded 05/30/18 11:55) Itching Home Medications: DULoxetine [Cymbalta 60 MG (*)] 60 mg PO BID 02/09/14 [Last Taken 05/29/18] traZODone [traZODone 150MG (*)] 225 mg PO HS 02/07/16 [Last Taken 05/29/18] clonIDINE [Catapres (*)] 0.1 mg PO DAILY PRN 02/18/18 [Last Taken 04/14/18] Denosumab [Prolia] 60 mg SQ Q180D 04/09/18 [Last Taken 11/19/17] buPROPion SR [Wellbutrin 150mg SR (*)] 150 mg PO BID 04/09/18 [Last Taken ] oxyCODONE IR [Oxycodone Ir (*)] 15 mg PO QID 04/09/18 [Last Taken 05/29/18] Acetaminophen [Tylenol 325mg (*)] 650 mg PO DAILY 05/30/18 [Last Taken 05/29/18] morphINE SR [Ms Contin/Oramorph 15 mg (*)] 15 mg PO Q12 05/30/18 [Last Taken ] I have personally reviewed and updated: family history, medical history, social history, surgical history - Past Medical History Additional medical history: chronic pain with opioid dependency, chronic regional pain syndrome, depression, TRACEY, osteoarthritis - Surgical History Additional surgical history: multiple orthopedic surgeries including recent L TKA, R ABDIRAHMAN with multiple hip dislocations - Family History Positive for: non-pertinent - Social History Smoking Status: Former smoker Alcohol Use: None Drug Use: None Additional social history: Lives with boyfriend. Independent in ADLs. Review of Systems Review of Systems: ROS: 10pt was reviewed & negative except for what was stated in HPI & below Physical Exam Physical Exam: Temp Pulse Resp BP Pulse Ox 36.5 C 82 18 148/80 H 99 05/30/18 11:51 05/30/18 13:22 05/30/18 13:22 05/30/18 13:22 05/30/18 13:22 Constitutional: uncomfortable, other (dried blood in pillow with blood in hair as well) Eyes: PERRL, anicteric sclera, EOMI Ears, Nose, Mouth, Throat: moist mucous membranes, hearing normal, ears appear normal, no oral mucosal ulcers Cardiovascular: regular rate and rhythym, no murmur, rub, or gallop, No edema Respiratory: no respiratory distress, no rales or rhonchi, clear to auscultation Gastrointestinal: normoactive bowel sounds, soft, non-tender abdomen, no palpable masses Genitourinary: no bladder fullness, no bladder tenderness Skin: other (healing incision over left knee) Musculoskeletal: joint tenderness (left hip, minimal ROM 2/2 pain) Neurologic: AAOx3 Psychiatric: interacting appropriately, not anxious, not encephalopathic, thought process linear Lab Data & Imaging Review Interpretation: CXR: questionable retrocardiac/left lower lobe consolidation, otherwise nothing acute. Pelvic x-ray: acute left intertrochanteric hip fracture, normal femur. Left knee x-ray: marked anterior soft tissue swelling with possible nondisplaced patellar fracture, possible small radiopaque foreign body. CT head: left occipital scalp hematoma without underlying skull fracture , no bleed. CT cervical spine: nothing acute Assessment & Plan Assessment: 67yo F with chronic pain with opioid dependency, chronic regional pain syndrome , depression presents after fall found to have hip fracture. Plan: 1. Left intertrochanteric hip fracture: Closed. Neuro intact - Dr Curran consulted. I discussed with him, plan for OR this afternoon - RCRI indicates low risk (0.4%) of major cardiac event with surgery - Pain control: Morphine 1-2mg IV q1h PRN for now. Will likely need SWING MANAGER in post-operative period. Recommend continuous pulse oximetry monitoring as she is at high risk for respiratory depression. - PT/OT 2. Possible left patellar fracture: Dr Curran consulted. 3. Acute hypoxia: On arrival to ED. Suspect atelectasis from splinting. Incentive spirometry in post-op setting. Wean O2 as able. 4. Scalp hematoma: Consequence of fall. Stapled in ED. No underlying skull fracture of bleed on CT. 5. Chronic pain with opioid dependency: Unclear how much she actually uses. She reports being on up to 800 morphine equivalents/day in the past but has been significantly weaned down. Her current MAR shows only 90 morphine equivalents/ day but she also states she was started on MS contin 2 days ago that isn't on MAR. Will check PDMP. Pain management per above. She sees Dr Sean Kothari for this. 6. Depression: Continue home meds when able to take PO. 7. TRACEY: Uses CPAP at night. VTE ppx: SCDs with surgery, start pharmacologic when ok by surgery Diet: NPO Code: full Dispo: Admit to inpatient for surgical management of hip fracture and pain control. Given comorbid conditions, will reasonably require >2 midnight stay.
[2018-05-30] MEDS ORDERED: BUPIVACAINE/EPI 0.5% 30 ML SDV ONE (14:39)
[2018-05-30] MEDS ORDERED: PROPOFOL 200 MG/20 ML VIAL ONE (14:58)
[2018-05-30] MEDS ORDERED: ROCURONIUM 50 MG/5 ML VIAL ONE (14:58)
[2018-05-30] MEDS ORDERED: ONDANSETRON 4 MG/2 ML VIAL ONE (14:58)
[2018-05-30] MEDS ORDERED: SUCCINYLCHOLINE CHLORIDE 200 MG/10 ML SYR IVP ONE (14:58)
[2018-05-30] MEDS ORDERED: LIDOCAINE 2% 5 ML SDV ONE (14:58)
[2018-05-30] MEDS ORDERED: DEXAMETHASONE 4 MG/ML VIAL ONE (14:58)
[2018-05-30] MEDS ORDERED: fentaNYL 250 MCG/5 ML INJ ONE ×3 (14:58→15:35)
[2018-05-30] MEDS ORDERED: CEFAZOLIN 2 GM/DEXTROSE/100 ML BAG IV ONE (15:09)
[2018-05-30] MEDS ORDERED: ceFAZolin 2 GM/DEXTROSE 100 ML IV ONE (15:10)
[2018-05-30] MEDS ORDERED: LR 500 ML IV PRN (15:49)
[2018-05-30] MEDS ORDERED: METOCLOPRAMIDE 10 MG/2 ML VIAL IVP PRN (15:49)
[2018-05-30] MEDS ORDERED: MEPERIDINE 25 MG/0.5 ML AMP IVP PRN (15:49)
[2018-05-30] MEDS ORDERED: NALOXONE HCL 0.4 MG/ML INJ IVP PRN (15:49)
[2018-05-30] MEDS ORDERED: PROMETHAZINE HCL 25 MG/ML INJ IVP PRN (15:49)
[2018-05-30] MEDS ORDERED: PHENYLEPHRINE HCL 100 MCG/ML SYR IVP PRN (15:49)
[2018-05-30] MEDS ORDERED: fentaNYL 100 MCG/2 ML INJ IVP PRN (15:49)
--- NOTE | 2018-05-30 15:51 | PDANEPAE ---
ANE Past Medical History - Cardiovascular History Hx Hypertension: No Hx Arrhythmias: No Hx Chest Pain: No Hx Coronary Artery / Peripheral Vascular Disease: No Hx CHF / Valvular Disease: No Hx Palpitations: No Cardiovascular History Comment: CHRONIC POOR CIRCULATION - Pulmonary History Hx COPD: No Hx Asthma/Reactive Airway Disease: No Hx Recent Upper Respiratory Infection: No Hx Oxygen in Use at Home: Yes O2 in Use at Home (L/minute): 4 Hx Sleep Apnea: Yes Pulmonary History Comment: decreased sats when sleeping d/t narcotics - Neurologic History Hx Cerebrovascular Accident: No Hx Seizures: No Hx Dementia: No Neurologic History Comment: TAKES NIVIGIL FOR DAYTIME SLEEPINESS AND FOCUS - Endocrine History Hx Diabetes: No - Renal History Hx Renal Disorders: Yes Renal History Comment: KIDNEY STONES PASSED ON OWN IN JANUARY 2013 - Liver History Hx Hepatic Disorders: No - Neurological & Psychiatric Hx Hx Neurological and Psychiatric Disorders: Yes Neurological / Psychiatric History Comment: RSDS-'REGIONAL SYMPATHETIC DYSTOPHY SYNDROME'- CHRONIC PAIN. DEPRESSION - Cancer History Hx Cancer: Yes Cancer History Comment: ATYPICAL CELLS L BREAST- lumpectomy with chemo - Congenital Disorder History Hx Congenital Disorders: No - GI History Hx Gastrointestinal Disorders: Yes Gastrointestinal History Comment: ESOPHAGUS LESION 15 Y AGO-ULCER DX - Other Health History Other Health History: chronic pain. POLIO AGE 19 MO- NUMERUS SURG R LEG, ANKLE AND FOOT. PRESENTLY R LEG IS 5/8 INCH SHORTER THAN L. MISSING TEETH X 4-5. LOOSE TOOTH BOTTOM L. bilateral hearing aides- doesn't wear. wears glasses - Chronic Pain History Chronic Pain: Yes (RT LEG) - Surgical History Prior Surgeries: 02/06/16 right hip reduction with dolbeare for dislocation. right hip closed reduction with melinda for dislocation. RIGHT FEMUR HARDWARE REMOVAL 12/23/12. RIGHT ABDIRAHMAN 06/25/13. NUMEROUS SURG R FOOT, LEG- HX POLIO AGE 19 MO. 12/26 HARDWARE REM R FEMUR,'08 R ARM FX REP X2, '08 HARDWARE PLACED FX HIP, '05 L BREAST. LUMPECTOMY- ATYPICAL. CELLS-TX TOMOXIFEN, EVISTA. '05-'10. ' R BREAST BX-. BENIGN. ' R LEG FX REP,'. EPIPHYSIODESIS L FEMUR TO. CORRECT LEG LENGTH. INEQUALITY, R ANKLE. ARTHRODESIS . REMVL HARDWARE RT FEMUR 12/23/12 ANE Review of Systems Review of Systems: ANE Patient History - Allergies Allergies/Adverse Reactions: adhesive tape Allergy (Uncoded 05/30/18 11:55) Itching bandaids Allergy (Uncoded 05/30/18 11:55) Itching - Home Medications Home Medications: DULoxetine [Cymbalta 60 MG (*)] 60 mg PO BID 02/09/14 [Last Taken 05/29/18] traZODone [traZODone 150MG (*)] 225 mg PO HS 02/07/16 [Last Taken 05/29/18] clonIDINE [Catapres (*)] 0.1 mg PO DAILY PRN 02/18/18 [Last Taken 04/14/18] Denosumab [Prolia] 60 mg SQ Q180D 04/09/18 [Last Taken 11/19/17] buPROPion SR [Wellbutrin 150mg SR (*)] 150 mg PO BID 04/09/18 [Last Taken ] oxyCODONE IR [Oxycodone Ir (*)] 15 mg PO QID 04/09/18 [Last Taken 05/29/18] Acetaminophen [Tylenol 325mg (*)] 650 mg PO DAILY 05/30/18 [Last Taken 05/29/18] morphINE SR [Ms Contin/Oramorph 15 mg (*)] 15 mg PO Q12 05/30/18 [Last Taken ] - NPO status NPO Since - Liquids (Time): 06:00 NPO Since - Solids (Date): 05/29/18 NPO Since - Solids (Time): 18:30 - Smoking Hx Smoking Status: Former smoker - Alcohol Use Alcohol Use: None - Family Anes Hx Family Hx Anesthesia Complications: none ANE Labs/Vital Signs - Vital Signs Blood Pressure: 125/80 Heart Rate: 82 Respiratory Rate: 18 O2 Sat (%): 99 Height: 167.64 cm Weight: 58.967 kg ANE Physical Exam - Airway Mallampati Score: Class 2 Mouth exam: poor dentition - Pulmonary Pulmonary: no respiratory distress - Cardiovascular Cardiovascular: regular rate and rhythym, no murmur, rub, or gallop - ASA Status ASA Status: III, E
[2018-05-30] MEDS ORDERED: PHENYLEPHRINE HCL 100 MCG/ML SYR ONE (15:53)
[2018-05-30] MEDS ORDERED: EPINEPHrine 1 MG/10 ML SYR IVP ONE (15:53)
[2018-05-30] MEDS ORDERED: oxyCODONE IR 15 MG TAB PO SCH (16:00)
[2018-05-30] MEDS ORDERED: SUGAMMADEX SODIUM 200 MG/2 ML VIAL IVP ONE (16:10)
--- NOTE | 2018-05-30 16:37 | POSTOPPROG ---
Post Op Note Date of Operation: 05/30/18 Surgeon: Faustino Curran Pharmaceutical Service Representative: none Anesthesia: GET(General Endotracheal) Pre-op Diagnosis: left it femur fx Post-op Diagnosis: same Indication: same Procedure: left It femur fx orif with TFN nail Inf/Abcess present in the surg proc area at time of surgery?: No Depth: Deep Incisional (Fascial) EBL: 100-500
[2018-05-30] MEDS ORDERED: DIAZEPAM 5 MG/ML 1 ML SYR ONE (16:50)
[2018-05-30] MEDS ORDERED: DIAZEPAM 5 MG/ML 1 ML SYR IVP ONE (16:54)
--- NOTE | 2018-05-30 16:56 | POSTANESTH ---
Post Anesthetic Evaluation Cardiovascular Status: Normal, Stable Respiratory Status: Normal, Stable Level of Consciousness/Mental Status: Can Participate in Eval, Moderately Sleepy Pain Control: Adequate, Prn Tx Ordered Nausea/Vomiting Control: Adequate, Prn Tx Ordered Complications Possibly Related to Anesthesia: None Noted
[2018-05-30] MEDS ORDERED: HYDROmorphONE/DILAUDID 2 MG/ML INJ ONE (17:37)
[2018-05-30] MEDS: HYDROmorphONE/DILAUDID 2 MG/ML INJ IVP PRN ×2 (17:42→17:54)
[2018-05-30] MEDS: DULoxetine 60 MG CAP PO SCH (20:02)
[2018-05-30] MEDS: buPROPion SR 150 MG TAB PO SCH (20:02)
[2018-05-30] MEDS: ACETAMINOPHEN 325 MG TAB PO PRN (20:03)
[2018-05-30] MEDS: oxyCODONE IR 15 MG TAB PO PRN (20:03)
--- NOTE | 2018-05-30 20:41 | GCON ---
CHIEF COMPLAINT: Left femur fracture. HISTORY OF PRESENT ILLNESS: The patient is a 67-year-old woman who is status post left total knee ar throplasty on April 28, 2018. She fell, while going to her psychotherapist today. While climbing up the steps, she tripped, and fell across her left side. She complained of immediate pain, inabili ty to ambulate. She was brought to the emergency department for further evaluation. X-rays demonstr ated an intertrochanteric fracture with displacement. The knee replacement x-rays appear stable. Th e patient has postpolio syndrome and reflex sympathetic dystrophy, and takes extensive chronic pain m anagement. PAST SURGICAL HISTORY: Right total hip replacement, right ankle arthrodesis, left total knee replace ment. MEDICATIONS: See chart. Bupropion, clonidine, diazepam, Forteo, Dilaudid extended release, oxycodon e, OxyContin, trazodone. ALLERGIES: Codeine and Keflex. Keflex causes a rash. She denies any current allergies, other than adhesive. SOCIAL HISTORY: She lives with her significant other. She is a nonsmoker. Moderate alcohol. OBJECTIVE: GENERAL: This is a thin woman, in no acute distress. HEENT: Normocephalic, atraumatic. EXTREMITIES: Bilateral upper extremities are unremarkable. Left lower extremity is shortened, ext ernally rotated, with a prominence of the greater trochanter. She is tender to palpation across this area. The left knee has a healing surgical incision to her left knee. There is mild effusion. No acute ecchymosis. No acute wound break down. No acute crepitus. She does have diffuse tenderness and numbness over the anterolateral aspect of her tibia. She has intact plantar flexion, dorsiflexio n, EHL function. Toes are warm and pink. She has intact sensation to light touch. RADIOGRAPHS: AP pelvis demonstrates a left intertrochanteric femur fracture, with 90 degrees angulat ion. She has a right total hip replacement, which appears concentrically reduced in the ball and soc ket and cemented in the stem. She has no fracture about her pelvis. Diffuse osteopenia. The left k nee demonstrates a total knee replacement, which appears stable and acutely positioned. There is a l ucency in the cement mantle interface on the superior pole on the lateral projection. This does not likely represent a fracture, and the components appear stabilely positioned. IMPRESSION: Left intertrochanteric femur fracture. TREATMENT PLAN: I have recommended surgical stabilization with a long TFN nail. I have outlined the surgical procedure, risks, benefits, and alternatives. She wishes to proceed. Written consent was signed and placed in patient's chart. Postoperative difficulty will be pain management, given her ch ronic pain history. She will be touchdown weightbearing for 6 weeks. I have discussed the potential risks of infection, blood clot, malunion, nonunion, and shortening in particular. /[id number]/MODL
[2018-05-30] MEDS: ceFAZolin 2 GM/DEXTROSE 100 ML IV SCH (23:59)
[2018-05-31] MEDS: ACETAMINOPHEN 325 MG TAB PO PRN ×2 (00:01→04:32)
[2018-05-31] MEDS: oxyCODONE IR 15 MG TAB PO PRN ×3 (02:31→16:02)
[2018-05-31] MEDS: ceFAZolin 2 GM/DEXTROSE 100 ML IV SCH ×2 (06:00→14:20)
--- NOTE | 2018-05-31 06:53 | PDIAF ---
- Diagnosis Diagnosis: left femur fracture Code Status: Full Code - Medication Management Discharge Medications: electronically signed and located in the Home Medication List. - Orders Services needed: Home Care, Physical Therapy Home Care Face to Face: I certify that this patient was under my care and that I had the required [id number] encounter meeting the encounter requirements on the discharge day. My findings support the fact that the patient is homebound as defined in Home Care Face to Face Continued: CMS Chapter 7 Medicare Benefits Manual 30.1.1 , The condition of the patient is such that there exists a normal inability to leave home and consequently, leaving home would require a considerable and taxing effort. Isolation Type: None Diet Recommendation: no restrictions on diet Diet Texture: Regular Texture Diet Activity/Weight Bearing Restrictions: 25% WEIGHT bearing across left lower extremity. continue rom to left knee as per [facility] protocol. ice at rest. rom to left hip as nyla. avoid falls. may shower without bandage. no soaking or immersion. [facility] at [facility] for repeat eval of hip. seek attn for increasing pain or other focal complaint Additional Instructions: You will need to return the emergency department have the adilene removed from her scalp in 7-10 days 25% WEIGHT bearing across left lower extremity continue rom to left knee as per [facility] protocol ice at rest rom to left hip as nyla avoid falls may shower without bandage no soaking or immersion f/u at [facility] at two weeks for repeat eval of hip seek attn for increasing pain or other focal complaint - Follow Up Care Current Providers and Referrals: NONE *PRIMARY CARE P,. [Primary Care Provider] - As per Instructions Faustino Curran MD [Medical Doctor] -
--- NOTE | 2018-05-31 06:58 | PDMN ---
Medical Necessity Medical necessity: Pt meets INPT criteria per MD as of 05/30/18 and [facility] S-[id number] Hip Fracture, Open Repair (est. LOS >2 MN s/p Left intertrochanteric hip fracture ORIF with TFN nail; comorbid chronic pain with opioid dependency, depression, TRACEY).
--- NOTE | 2018-05-31 07:28 | SOAPPROG ---
SOAP Progress Note Assessment/Plan: Assessment: s/p im nail for left it femur fx Plan:ok to anticoagulate, dvt precautions reviewed continue pt/ot for left tka protocol 25% wb and rom to left hip pain control d/c when stable will follow 05/31/18 07:27 Subjective: pain Objective: Vital Signs Temp Pulse Resp BP Pulse Ox 36.9 C 77 16 94/52 L 98 05/31/18 04:00 05/31/18 04:00 05/31/18 04:00 05/31/18 04:00 05/31/18 04:00 Laboratory Results 05/31/18 04:20 05/31/18 04:20 05/30/18 05/31/18 06/01/18 05:59 05:59 05:59 Intake Total 105 Output Total 1800 Balance -1800 105 dressing clean, dry and intact intact pf,df,ehl toes warm and pink neg homans macy xrays anatomic ICD10 Worksheet Patient Problems: Problems Problem Status Onset Fracture, intertrochanteric, left femur Acute Occipital scalp laceration Acute Osteoarthritis of hip Active Accidental drug overdose Acute Anterior dislocation of right hip Acute COPD (chronic obstructive pulmonary disease) Acute Osteoarthritis of left knee Acute
[2018-05-31] MEDS: buPROPion SR 150 MG TAB PO SCH ×2 (08:06→21:18)
[2018-05-31] MEDS: DULoxetine 60 MG CAP PO SCH ×2 (08:06→21:19)
--- NOTE | 2018-05-31 08:19 | HOSPPROG ---
Hospitalist Progress Note Assessment/Plan: 67yo F with chronic pain with opioid dependency, chronic regional pain syndrome , depression presents after fall found to have hip fracture. 1. Left intertrochanteric hip fracture: Closed. s/p IM nail with Dr Curran 05/30 - she reports being in severe pain yet shows no distress and no objective signs (tachycardia, htn, etc) - continue morphine 1-2mg IV q2h PRN for breakthrough - continue home MS contin 15 BID - will also make available her home oxycodone 15mg q6h but will use PRN instead of scheduled (as she does at home) to avoid over-sedation - PT/OT - bowel regimen, continuous pulse oximetry 2. Acute hypoxemic resp insufficiency: Requiring 2L but O2 sats high, will try to wean. Incentive spirometry ordered. 3. Normocytic anemia: H/H a bit down from before. No note of sig blood loss in procedure. Check Fe studies, B12. Monitor. 4. Chronic pain with opioid dependency: She reports weaning her doses down with her pain specialist (Dr Sarbjit Kothari). Manage as above. 5. Possible left patellar fracture: Dr Curran consulted. 6. Scalp hematoma: Consequence of fall. Stapled in ED. No underlying skull fracture of bleed on CT. 7. Depression: Continue home meds when able to take PO. 8. TRACEY: Uses CPAP at night. VTE ppx: start LMWH Diet: regular Code: full Dispo: Remain inpatient. Dispo pending pain control, PT/OT Subjective: "I'm in so much pain" Objective: Vital Signs Temp Pulse Resp BP Pulse Ox 37.0 C 77 17 92/47 L 99 05/31/18 07:36 05/31/18 07:36 05/31/18 07:36 05/31/18 07:36 05/31/18 07:36 Laboratory Results 05/31/18 04:20 05/31/18 04:20 05/30/18 05/31/18 06/01/18 05:59 05:59 05:59 Intake Total 105 Output Total 1800 Balance -1800 105 - Physical Exam Constitutional: no apparent distress, appears nourished, not in pain Eyes: PERRL, anicteric sclera, EOMI Ears, Nose, Mouth, Throat: moist mucous membranes, hearing normal, ears appear normal, no oral mucosal ulcers Cardiovascular: regular rate and rhythym, no murmur, rub, or gallop, No edema Respiratory: no respiratory distress, no rales or rhonchi, clear to auscultation Gastrointestinal: normoactive bowel sounds, soft, non-tender abdomen, no palpable masses Genitourinary: khan in urethra Skin: no rashes or abrasions, no fluctuance, no induration, other (bandage over lateral left thigh) Musculoskeletal: full muscle strength, no muscle tenderness, normal joint ROM Neurologic: AAOx3, sensation intact bilaterally Psychiatric: interacting appropriately, not anxious, not encephalopathic, thought process linear ICD10 Worksheet Patient Problems: Problems Problem Status Onset Fracture, intertrochanteric, left femur Acute Occipital scalp laceration Acute Osteoarthritis of hip Active Accidental drug overdose Acute Anterior dislocation of right hip Acute COPD (chronic obstructive pulmonary disease) Acute Osteoarthritis of left knee Acute
[2018-05-31] MEDS: SENNOSIDES/DOCUSATE SODIUM TAB PO SCH ×2 (08:51→21:18)
[2018-05-31] MEDS: ENOXAPARIN 40 MG/0.4 ML SYR SC SCH (08:51)
[2018-05-31] MEDS: ACETAMINOPHEN 500 MG TAB PO SCH ×2 (08:51→16:01)
[2018-05-31] MEDS: morphINE SR 15 MG TAB PO SCH ×2 (08:52→21:19)
[2018-05-31] MEDS: NS 1,000 ML IV SCH (12:45)
[2018-06-01] MEDS: oxyCODONE IR 15 MG TAB PO PRN ×3 (02:06→18:48)
[2018-06-01] MEDS: ACETAMINOPHEN 500 MG TAB PO SCH ×4 (02:16→23:53)
[2018-06-01] MEDS: morphINE SR 15 MG TAB PO SCH ×2 (08:48→21:25)
[2018-06-01] MEDS: DULoxetine 60 MG CAP PO SCH ×2 (08:49→21:24)
[2018-06-01] MEDS: SENNOSIDES/DOCUSATE SODIUM TAB PO SCH ×2 (08:49→21:25)
[2018-06-01] MEDS: buPROPion SR 150 MG TAB PO SCH ×2 (08:49→21:25)
[2018-06-01] MEDS: ENOXAPARIN 40 MG/0.4 ML SYR SC SCH (08:50)
[2018-06-01] MEDS: NS 1,000 ML IV SCH (08:52)
[2018-06-01] MEDS ORDERED: SODIUM FERRIC GLUCONAT/SUCROSE 125 MG in NS 100 ML IV ONE (12:01)
--- NOTE | 2018-06-01 12:02 | HOSPPROG ---
Hospitalist Progress Note Assessment/Plan: 67yo F with chronic pain with opioid dependency, chronic regional pain syndrome , depression presents after fall found to have hip fracture. First encounter, chart reviewed. D/W CM. 1. Left intertrochanteric hip fracture: - Closed. s/p IM nail with Dr Curran 05/30 - she reports being in severe pain yet shows no distress and no objective signs (tachycardia, htn, etc) - DC morphine 1-2mg IV q2h PRN - continue home MS contin 15 BID - will also make available her home oxycodone 15mg q6h but will use PRN instead of scheduled (as she does at home) to avoid over-sedation - PT/OT - bowel regimen, continuous pulse oximetry 2. Acute hypoxemic resp insufficiency: -Requiring 2L but O2 sats high, will try to wean. Incentive spirometry 3. Normocytic anemia: -H/H a bit down from before. -No note of sig blood loss in procedure. -Fe studies low, will replace. -Monitor 4. Chronic pain with opioid dependency: -She reports weaning her doses down with her pain specialist (Dr Sarbjit Kothari) . Manage as above. 5. Possible left patellar fracture: - Dr Curran consulted. 6. Scalp hematoma: -Consequence of fall. Stapled in ED. No underlying skull fracture of bleed on CT. 7. Depression: -Continue home meds when able to take PO. 8. TRACEY: -Uses CPAP at night. VTE ppx: start LMWH Diet: regular Code: full Dispo: Remain inpatient. Needs SNF rehab Plan for DC in am if doing well Subjective: Up in chair. No distress. States she is having pain. Objective: Vital Signs Temp Pulse Resp BP Pulse Ox 37.1 C 88 17 87/49 L 96 06/01/18 08:00 06/01/18 08:00 06/01/18 08:00 06/01/18 08:00 06/01/18 08:00 Laboratory Results 06/01/18 04:19 05/31/18 04:20 05/31/18 06/01/18 06/02/18 05:59 05:59 05:59 Intake Total 1805 Output Total 1800 Balance -1800 1805 - Physical Exam Constitutional: appears nourished, chronically ill appearing, No obese Eyes: PERRL, anicteric sclera, EOMI Ears, Nose, Mouth, Throat: moist mucous membranes, hearing normal, ears appear normal Cardiovascular: regular rate and rhythym, No JVD, No edema Respiratory: no respiratory distress, no rales or rhonchi, reduced air movement Gastrointestinal: normoactive bowel sounds, No tenderness, No ascites Skin: warm, normal color, No mottled Musculoskeletal: pain with ROM, muscular tenderness, abnormal gait, generalized weakness Neurologic: AAOx3 Psychiatric: not anxious, poor insight, poor judgement, poor memory ICD10 Worksheet Patient Problems: Problems Problem Status Onset Fracture, intertrochanteric, left femur Acute Occipital scalp laceration Acute Osteoarthritis of left knee Acute Osteoarthritis of hip Active Anterior dislocation of right hip Acute COPD (chronic obstructive pulmonary disease) Acute Accidental drug overdose Acute
--- NOTE | 2018-06-01 14:22 | ASMTCMCOM ---
CM Note CM Note Notes: 67yo female admitted after a fall down stairs: Hip, patella fx's, Scalp lac, Chronic pain. She has a Hx of Chronic pain, TRACEY, OA, Depression, former smoker, 05/05/18- L TKA. Therapies recommending SNF rehab. Patient asleep when I went in to [place] to her. Date Signed: 05/31/2018 05:37 PM Electronically Signed By:Vianca Stanley LCSW
[2018-06-01] MEDS: FERRO-SEQUELS 65 MG TAB.ER PO SCH (14:46)
[2018-06-01] MEDS: MAGNESIUM HYDROXIDE 30 ML UDCUP PO PRN (15:02)
[2018-06-01] MEDS: POLYETHYLENE GLYCOL 3350 17 GM PKT PO PRN (15:02)
[2018-06-02] MEDS: oxyCODONE IR 15 MG TAB PO PRN ×2 (05:10→13:46)
--- NOTE | 2018-06-02 07:18 | SOAPPROG ---
SOAP Progress Note Assessment/Plan: Assessment: s/p im nail for left it femur fx Plan:ok to anticoagulate, dvt precautions reviewed continue pt/ot for left tka protocol 25% wb and rom to left hip pain control d/c when stable may need snf given immobility will follow 05/31/18 07:27 06/02/18 07:17 Subjective: pain Objective: Vital Signs Temp Pulse Resp BP Pulse Ox 36.7 C 74 18 102/54 L 92 06/02/18 04:00 06/02/18 04:00 06/02/18 04:00 06/02/18 04:00 06/02/18 04:00 Laboratory Results 06/02/18 04:40 05/31/18 04:20 06/01/18 06/02/18 06/03/18 05:59 05:59 05:59 Intake Total 1805 1775 Output Total 1000 Balance 1805 775 dressing clean, dry and intact intact pf,df,ehl toes warm and pink knee with mild effusion neg homans macy ICD10 Worksheet Patient Problems: Problems Problem Status Onset Fracture, intertrochanteric, left femur Acute Occipital scalp laceration Acute Osteoarthritis of hip Active Accidental drug overdose Acute Anterior dislocation of right hip Acute COPD (chronic obstructive pulmonary disease) Acute Osteoarthritis of left knee Acute
[2018-06-02] MEDS: buPROPion SR 150 MG TAB PO SCH (08:18)
[2018-06-02] MEDS: SENNOSIDES/DOCUSATE SODIUM TAB PO SCH (08:18)
[2018-06-02] MEDS: ENOXAPARIN 40 MG/0.4 ML SYR SC SCH (08:18)
[2018-06-02] MEDS: ACETAMINOPHEN 500 MG TAB PO SCH ×2 (08:19→16:13)
[2018-06-02] MEDS: DULoxetine 60 MG CAP PO SCH (08:19)
[2018-06-02] MEDS: morphINE SR 15 MG TAB PO SCH (08:19)
[2018-06-02] MEDS: FERRO-SEQUELS 65 MG TAB.ER PO SCH (08:20)
[2018-06-02] MEDS: POLYETHYLENE GLYCOL 3350 17 GM PKT PO PRN (08:21)
[2018-06-02] MEDS: MAGNESIUM HYDROXIDE 30 ML UDCUP PO PRN (08:32)
--- NOTE | 2018-06-02 09:44 | HOSPPROG ---
Hospitalist Progress Note Assessment/Plan: 67yo F with chronic pain with opioid dependency, chronic regional pain syndrome , depression presents after fall found to have hip fracture. First encounter, chart reviewed. Reviewed her care w Dr Curran. * Left intertrochanteric hip fracture - s/p IM nail with Dr Curran 05/30 *hypotension -bp has been overall low during her stay -asymptomatic *acute hypoxemic resp failure -on 2- 3 liters *constipation -bowel protocol *iron def anemia -IV iron *chronic pain w opioid dependency -sees Dr Kothari in the OP setting * concern for a Possible left patellar fracture: -Dr Curran notes it is stable in his note and it is a lucency * Scalp hematoma -CT of head shows nothing acute -adilene *Depression -home meds *TRACEY -CPAP *VTE ppx: LMWH Subjective: Azucena says she has chronic regional pain syndrome so she has underlying pain along w left hip pain, her back is feeling better, but still has some hip pain. Objective: Vital Signs Temp Pulse Resp BP Pulse Ox 36.8 C 71 13 94/47 L 98 06/02/18 07:27 06/02/18 07:27 06/02/18 07:27 06/02/18 07:27 06/02/18 07:27 Laboratory Results 06/02/18 04:40 05/31/18 04:20 06/01/18 06/02/18 06/03/18 05:59 05:59 05:59 Intake Total 1805 1775 Output Total 1000 Balance 1805 775 - Physical Exam Constitutional: chronically ill appearing, uncomfortable Eyes: PERRL Ears, Nose, Mouth, Throat: hearing normal Respiratory: no respiratory distress Skin: warm, other (left hip, upper thigh area w swelling) Musculoskeletal: generalized weakness Neurologic: AAOx3 Psychiatric: interacting appropriately ICD10 Worksheet Patient Problems: Problems Problem Status Onset Fracture, intertrochanteric, left femur Acute Occipital scalp laceration Acute Osteoarthritis of hip Active Accidental drug overdose Acute Anterior dislocation of right hip Acute COPD (chronic obstructive pulmonary disease) Acute Osteoarthritis of left knee Acute
[2018-06-02] MEDS ORDERED: MAGNESIUM CITRATE 300 ML BOTTLE PO ONE (11:45)
[2018-06-02 12:09] VITALS: BP 111/60
--- NOTE | 2018-06-02 15:03 | PDIAF ---
- Diagnosis Diagnosis: left femur fracture s/p repair, hypotension, anemia Code Status: Full Code - Medication Management Discharge Medications: electronically signed and located in the Home Medication List. PICC Care - Routine: N/A - Orders Services needed: Home Care, Physical Therapy Home Care Face to Face: I certify that this patient was under my care and that I had the required [id number] encounter meeting the encounter requirements on the discharge day. My findings support the fact that the patient is homebound as defined in Home Care Face to Face Continued: CMS Chapter 7 Medicare Benefits Manual 30.1.1 , The condition of the patient is such that there exists a normal inability to leave home and consequently, leaving home would require a considerable and taxing effort. Isolation Type: None Oxygen: 3 Diet Recommendation: no restrictions on diet Diet Texture: Regular Texture Diet Activity/Weight Bearing Restrictions: 25% WEIGHT bearing across left lower extremity. continue rom to left knee as per [facility] protocol. ice at rest. rom to left hip as nyla. avoid falls. may shower without bandage. no soaking or immersion. [facility] for repeat eval of hip. seek attn for increasing pain or other focal complaint Additional Instructions: You will need to return the emergency department have the adilene removed from her scalp in 7-10 days (06/06 - ) 25% WEIGHT bearing across left lower extremity continue rom to left knee as per [facility] protocol ice at rest rom to left hip as nyla avoid falls may shower without bandage no soaking or immersion f/u at [facility] at two weeks for repeat eval of hip seek attn for increasing pain or other focal complaint aspirin has been discontinued while on Lovenox, once Lovenox discontinued resume it - Labs/Radiology BMP Date: 06/04/18 CBC w/diff Date: 06/04/18 - Follow Up Care Current Providers and Referrals: NONE *PRIMARY CARE P,. [Primary Care Provider] - As per Instructions Faustino Curran MD [Medical Doctor] -
--- NOTE | 2018-06-02 15:50 | ASMTDCNOTE ---
Case Management Discharge Discharge Order Complete? Answers: Yes Patient to Obtain Answers: Other Notes: [facility] to arrange Medications transport Transportation Arranged Answers: Other Notes: [facility] to arrange transport Transport will Pick (Date 06/02/2018 12:00 AM & Time) Faxed Final Orders Answers: Yes Agency/Facility Transfer Answers: Yes Report Printed & Faxed to Receiving Agency Family Notified Answers: Yes Discharge Comments Notes: CM discussed discharge plan with pt. [facility] arranged transportation. no other CM needs identified. Date Signed: 06/02/2018 03:49 PM Electronically Signed By:MAURICIO Denny
--- NOTE | 2018-06-02 15:51 | ASMTLACE ---
LACE Length of stay for Answers: 3 days current admission Acuity / Level of Answers: Yes Care: Did the patient have an inpatient admission? Comorbidities - select Answers: History of falls all that apply Opioid dependence / Chronic pain Other Notes: Fall: Hip, patella fx's, Scalp lac, # of Emergency department Answers: 1-2 visits in the last 6 months Social determinants Answers: History of substance abuse (ETOH, street drugs, prescription drugs, etc.) Mental health diagnosis (anxiety, depression, pers onality disorders, etc.) Score: 21 Date Signed: 06/02/2018 03:51 PM Electronically Signed By:MAURICIO Denny
--- NOTE | 2018-06-02 15:58 | ASDISCHSUM ---
Discharge Information Plan Status:SNF Medically Cleared to Leave: Discharge Date: D/C Disposition:[facility] D/C Disposition:[facility] Facility Projected Discharge Date:06/02/2018 11:00 AM Transportation at D/C: Discharge Delay Reason: Follow-Up Date:06/02/2018 11:00 AM Discharge Slot: Final Diagnosis:Fall: Hip, patella fx's, Scalp lac, Chronic pain Placement Information Referral Type:*Half-Way/SNF Referral ID:[id number] Provider Name:[facility] Address 1:[address] Address 2: City:[place] Selection Factors: State:[place] Patient Contact Information Contact Name:EMMABandar Relationship:Life Partner Address:[address] City:[place] Alternate Phone: [facility]/Zip Code:[place] [address] Email: Financial Information Financial Class:Medicare Primary Plan Desc:MEDICARE INPATIENT Primary Plan Number:[id number] Secondary Plan Desc:[employer]/MDR SUPPLEMENT Secondary Plan Number:[id number] Assessment Information [facility] CM Progress Note CM Note CM Note Notes: 67yo female admitted after a fall down stairs: Hip, patella fx's, Scalp lac, Chronic pain. She has a Hx of Chronic pain, TRACEY, OA, Depression, former smoker, 05/05/18- L TKA. Therapies recommending SNF rehab. Patient asleep when I went in to [place] to her. Date Signed: 05/31/2018 05:37 PM Electronically Signed By:Vianca Stanley LCSW LACE LACE Length of stay for Answers: 3 days current admission Acuity / Level of Answers: Yes Care: Did the patient have an inpatient admission? Comorbidities - select Answers: History of falls all that apply Opioid dependence / Chronic pain Other Notes: Fall: Hip, patella fx's, Scalp lac, # of Emergency department Answers: 1-2 visits in the last 6 months Social determinants Answers: History of substance abuse (ETOH, street drugs, prescription drugs, etc.) Mental health diagnosis (anxiety, depression, pers onality disorders, etc.) Score: 21 Date Signed: 06/02/2018 03:51 PM Electronically Signed By:MAURICIO Denny Case Management Discharge Plan Note Case Management Discharge Discharge Order Complete? Answers: Yes Patient to Obtain Answers: Other Notes: [facility] to arrange Medications transport Transportation Arranged Answers: Other Notes: [facility] to arrange transport Transport will Pick (Date 06/02/2018 12:00 AM & Time) Faxed Final Orders Answers: Yes Agency/Facility Transfer Answers: Yes Report Printed & Faxed to Receiving Agency Family Notified Answers: Yes Discharge Comments Notes: CM discussed discharge plan with pt. [facility] arranged transportation. no other CM needs identified. Date Signed: 06/02/2018 03:49 PM Electronically Signed By:MAURICIO Denny Intervention Information Intervention Type:*IM-Signed Date of Service:06/02/2018 03:42 PM Patient Type:Inpatient Staff Member:Candi Myers Hours: Discipline: Severity: Comment:
--- NOTE | 2018-06-02 18:54 | GDS ---
DISCHARGE DIAGNOSES: 1. Left intertrochanteric hip fracture. 2. Hypotension. 3. Acute hypoxemic respiratory failure. 4. Constipation. 5. Iron-deficiency anemia. 6. Chronic pain with opioid dependency. 7. Initial concern for a left patellar fracture, but noted to be a lucency. 8. Scalp hematoma. 9. Depression. 10. Obstructive sleep apnea. CONSULTATION: Dr. Faustino Curran. HISTORY: Briefly, the patient is a 67-year-old woman with chronic pain, with opioid dependence, chronic regional pain syndrome, depression, who presented to the emergency room after falling down. She was walking up the stairs to see her therapist when her legs did not clear the stair, and she fell down 4-5 stairs, landing on her left hip and striking her head. She had a small laceration on the occiput that was closed with adilene in the emergency room. She had an x-ray that showed an acute left intertrochanteric hip fracture. She was seen by Dr. Curran, and on 05/30, she had surgery. She is status post a left femoral fixation. She has done well overall with surgery. There is also a concern that she had a patellar fracture. This was evaluated by Dr. Curran. He noted that there was a lucency in the cement mantle interface on the superior pole on the lateral projection, which did not likely represent a fracture. The components are stably positioned. HOSPITAL COURSE: 1. Left intertrochanteric hip fracture. She is status post surgery with Dr. Curran on the . Overall doing well. 2. Hypotension. Her blood pressure has been running low throughout most of her stay. She is asymptomatic. 3. Acute hypoxemic respiratory failure. I suspect this is mainly secondary from atelectasis. She has been on 2-3 L. 4. Constipation, resolved. 5. Iron-deficiency anemia, treated IV iron. Will continue oral iron. 6. Chronic pain with opioid dependency. She sees Dr. Kothari in the outpatient setting. Further followup with him. 7. Concern for a possible left patellar fracture. This was noted to be a lucency. 8. Scalp hematoma, to come back to the ER to get adilene removed. 9. Depression, stable. Her home medications have been resumed. 10. Obstructive sleep apnea, on CPAP. DISCHARGE CONDITION: Stable. Blood pressure is 111/60, heart rate 76, respiratory rate of 14. O2 saturations on 3 L are 92%. Temperature is 36.7 Celsius. DISCHARGE MEDICATIONS: Please see the EMR. DISCHARGE INSTRUCTIONS: 1. To come to the emergency room to have the adilene removed in 7-10 days. 2. 25% weightbearing to her left lower extremity. To follow up with [facility] in 2 weeks for a repeat evaluation of her hip. 3. To hold aspirin while she is on Lovenox. Once Lovenox is discontinued, resume it. 4. To have her labs monitored at the halfway facility. Greater than 30 minutes discharging and coordinating her care. /[id number]/MODL MTDD
--- NOTE | 2018-06-04 08:03 | GOP ---
DATE OF OPERATION: 05/30/2018 SURGEON: Faustino Curran MD STARTING GATE DRIVER: None. PREOPERATIVE DIAGNOSIS: Left displaced intertrochanteric femur fracture. POSTOPERATIVE DIAGNOSIS: Left displaced intertrochanteric femur fracture. PROCEDURE PERFORMED: Open reduction, internal fixation, left intertrochanteric femur fracture with i ntramedullary implant. FINDINGS: INDICATIONS: The patient is a 67-year-old woman with chronic pain. She is 4 weeks status post left total knee replacement by Dr. Clem Jolley. She fell onto her left side sustaining an intertrochanteri c femur fracture. She was brought to the emergency department. X-rays demonstrated an intertrochant kate femur fracture. She had 90 degrees of angular displacement. Given the fracture location, posit ion, and characteristics, I recommended intramedullary implant. I have outlined the surgical procedu re, risks, benefits, and alternatives, she wished to proceed. Written consent was signed and placed in the patient's chart. DESCRIPTION OF PROCEDURE: The patient was identified in the preanesthesia area. The left hip clearl y demarcated as the operative site with indelible marker. She was given 2 g of Ancef intravenously i n route to the operative suite. In the OR, general endotracheal anesthesia was administered. Attention was turned to the left hip. She was positioned on the fracture table with a padded perinea l post. Fluoroscopic evaluation was utilized to reduce the fracture to an anatomic position. The hi p was then sterilely prepped and draped in the usual fashion. Appropriate time-out procedure was car ried out. A shower curtain drape was utilized with extended pad for planned long TFN placement. A percutaneous incision was made over the proximal lateral aspect of the greater trochanter. Guidewi re was advanced into the center of the greater trochanter and proximal femur. The proximal canal was opened and a single-stage reaming guidewire was advanced to a central position in the distal knee un marylin fluoroscopic evaluation. This was then reamed to 13.5 mm with a flexible reamer. A 12 x 400 mm TFN nail was placed and confirmed to be fully seated. A lateral incision was made. A guidewire adva nced into the central inferior position of the femoral head and this was reamed on the lateral cortex only, and 100 mm head blade was then placed. This was then secured and dynamize through the proxima l nail. No distal interlocking screw was placed. The wounds were copiously irrigated, closed in layers using 2-0 Monocryl and adilene. Sterile dressi ng was applied. The wound was instilled with 20 cc of 0.5% Marcaine with epinephrine. The patient w as awakened, extubated, and taken to recovery room in good, stable condition. She will be 25% weightbearing for 2 weeks. She will continue with range of motion as tolerated and k nee rehabilitation following her total knee replacement. /[id number]/MODL
== END 2018-06-02 17:13 | DRG 480 ==
LOC: EDUNIT# → F3N 18:05
PROVIDERS: ADMIT Internal Medicine; ATTEND Internal Medicine
PROC: 0HQ0XZZ Repair Scalp Skin, External Approach (ICD-10-PCS; 2018-05-30)
PROC: 0QS706Z Reposition Left Upper Femur with Intramedullary Internal Fixation Device, Open Approach (ICD-10-PCS; principal; 2018-05-30 15:00)
DX: S72.142A Displaced intertrochanteric fracture of left femur, initial encounter for closed fracture (principal); J96.01 Acute respiratory failure with hypoxia; F11.20 Opioid dependence, uncomplicated; G90.50 Complex regional pain syndrome I, unspecified; S01.01XA Laceration without foreign body of scalp, initial encounter; W10.8XXA Fall (on) (from) other stairs and steps, initial encounter; Y92.59 Other trade areas as the place of occurrence of the external cause; G14 Postpolio syndrome; I95.9 Hypotension, unspecified; K59.00 Constipation, unspecified; D50.9 Iron deficiency anemia, unspecified; G89.29 Other chronic pain; F32.9 Major depressive disorder, single episode, unspecified; G47.33 Obstructive sleep apnea (adult) (pediatric); Z96.652 Presence of left artificial knee joint; Z96.641 Presence of right artificial hip joint; Z96.661 Presence of right artificial ankle joint
CPT/HCPCS: 82607-90; 92523-GN; 96374; 97116-GP; 97162-GP; 97166-GO; 97530-GP; 97535-GO; C1713; G0515-GO; G8978-GP-CK; G8979-GP-CJ; G8987-GO-CK; G8988-GO-CI; G9168-GN-CJ; G9169-GN-CJ; J0330; J0690; J1100; J1170; J1650; J2060; J2370; J2405; J2704; J2916; J3010; J3360

== ENCOUNTER → 2018-07-29 | Outpatient (CLI) | payer OTHER, MEDICARE | END | disposition home or self-care (01) | LOC: BMCIMAGING 10:01 | PROVIDERS: ATTEND Physician Assistant | DX: S72.142A Displaced intertrochanteric fracture of left femur, initial encounter for closed fracture (principal); W10.8XXA Fall (on) (from) other stairs and steps, initial encounter; Y92.59 Other trade areas as the place of occurrence of the external cause; Z09 Encounter for follow-up examination after completed treatment for conditions other than malignant neoplasm; Z96.641 Presence of right artificial hip joint ==

== ENCOUNTER → 2018-09-11 | Outpatient (CLI) | payer OTHER, MEDICARE | LOC: BMCIMAGING 10:30 | PROVIDERS: ATTEND Physician Assistant | DX: S72.142D Displaced intertrochanteric fracture of left femur, subsequent encounter for closed fracture with routine healing (principal) ==

== ENCOUNTER → 2018-10-26 | Outpatient (CLI) | payer OTHER, MEDICARE | LOC: BMCIMAGING 09:09 | PROVIDERS: ATTEND Physician Assistant | DX: Z47.1 Aftercare following joint replacement surgery (principal); Z96.642 Presence of left artificial hip joint ==